=== PATIENT | male | born 1970 | race Caucasian/White ===

== ENCOUNTER → 2020-09-08 | Outpatient (CLI) | payer OTHER ==
[~2020-09-08] MED LIST: CYCLOBENZAPRINE10 MG PO; NAPROSYN500 MG PO
== END ==
LOC: KOH-I 10:22
DX: M25.512 Pain in left shoulder (principal)
CPT/HCPCS: 73030

== ENCOUNTER → 2020-10-26 | Outpatient (CLI) | payer BC, OTHER, SELFPAY | LOC: KOH-I 08:48 | DX: M79.672 Pain in left foot (principal) | CPT/HCPCS: 73630 ==

== ENCOUNTER → 2020-12-23 | Outpatient (CLI) | payer BC ==
[2020-12-23 12:29] LABS: BUN/CREATININE RATIO 21 (0-10)
== END ==
LOC: LAB 11:21
PROVIDERS: Emergency Medicine
DX: E11.9 Type 2 diabetes mellitus without complications (principal)
CPT/HCPCS: 36415; 80053; 80061; 82043; 82570; 83036; 84443

== ENCOUNTER 2021-02-18 10:45 | Emergency (ER) | payer BC, MEDICAID ==
[2021-02-18] MEDS ORDERED: NAPROSYN500 MG PO (15:48)
[2021-02-18] MEDS ORDERED: CYCLOBENZAPRINE10 MG PO (15:48)
== END 2021-02-18 16:21 | disposition home or self-care (01) ==
LOC: ER1 10:45
DX: M51.86 Other intervertebral disc disorders, lumbar region (principal); E11.9 Type 2 diabetes mellitus without complications; I10 Essential (primary) hypertension; Z88.5 Allergy status to narcotic agent
CPT/HCPCS: 72131; 96372; 99284; J1885

== ENCOUNTER → 2021-09-03 | Outpatient (CLI) | payer BC ==
[2021-09-04 08:15] LABS: A/G RATIO 1.8 (1.2-2.2); ALKALINE PHOSPHATASE, S 124 IU/L (44-121); ALT (SGPT) 54 IU/L (0-44); AST (SGOT) 34 IU/L (0-40); BILIRUBIN, TOTAL 0.5 mg/dL (0.0-1.2); BUN 15 mg/dL (6-24); BUN/CREATININE RATIO 20 (9-20); CALCIUM, SERUM 9.5 mg/dL (8.7-10.2); CARBON DIOXIDE, TOTAL 23 mmol/L (20-29); CHLORIDE, SERUM 104 mmol/L (96-106); CHOLESTEROL, TOTAL 177 mg/dL (100-199); CREATININE, SERUM 0.75 mg/dL (0.76-1.27); CREATININE, URINE 174.5 mg/dL (Not Estab.); EGFR IF AFRICN AM 121 (>59); EGFR IF NONAFRICN AM 105 (>59); ESTIM. AVG GLU (EAG) 263 mg/dL (.); GLOBULIN, TOTAL 2.3 g/dL (1.5-4.5); GLUCOSE, SERUM 201 mg/dL (65-99); HDL CHOLESTEROL 30 mg/dL (>39); HEMOGLOBIN A1C 10.8 % (4.8-5.6); LDL CHOLESTEROL CALC 120 mg/dL (0-99); POTASSIUM, SERUM 4.1 mmol/L (3.5-5.2); PROTEIN, TOTAL, SERUM 6.5 g/dL (6.0-8.5); SODIUM, SERUM 143 mmol/L (134-144); T. CHOL/HDL RATIO 5.9 ratio (0.0-5.0); TRIGLYCERIDES 148 mg/dL (0-149)
== END ==
LOC: LAB 10:07
PROVIDERS: Emergency Medicine
DX: E11.9 Type 2 diabetes mellitus without complications (principal)
CPT/HCPCS: 36415; 80053; 80061; 82043; 82570; 83036; 84443

== ENCOUNTER → 2021-10-11 | Outpatient (CLI) | payer BC ==
[2021-10-11 10:32] LABS: BUN/CREATININE RATIO 33 (0-10)
[2021-10-12 11:17] LABS: CREATININE, URINE 62.9 mg/dL (Not Estab.)
== END ==
LOC: ECHO 09:48
PROVIDERS: Internal Medicine Nephrology
DX: N18.9 Chronic kidney disease, unspecified (principal); I50.9 Heart failure, unspecified
CPT/HCPCS: ECHO; 36415; 80053; 81001; 82043; 82570; 84156; 93306

== ENCOUNTER → 2021-10-22 | Outpatient (CLI) | payer BC | LOC: KOH-I 11:22 | DX: M25.532 Pain in left wrist (principal); M19.032 Primary osteoarthritis, left wrist | CPT/HCPCS: 73100 ==

== ENCOUNTER → 2021-10-31 | Outpatient (CLI) | payer BC | LOC: EXRD 13:29 | DX: M79.89 Other specified soft tissue disorders (principal) | CPT/HCPCS: 93970 ==

== ENCOUNTER 2021-11-14 14:42 | Emergency (ER) | payer BC ==
[2021-11-14 15:19] LABS: HEMOGLOBIN 15.8 gm/dl (14.0-17.5); RED BLOOD COUNT 5.3 M/UL (4.20-5.50); WHITE BLOOD COUNT 8.2 K/UL (4.5-11.0)
[2021-11-14 15:39] LABS: BUN/CREATININE RATIO 19 (0-10)
[2021-11-14] MEDS ORDERED: HYDROCODON-ACE1 EAC4 PO (21:23)
== END 2021-11-14 21:45 | disposition home or self-care (01) ==
LOC: ER1 14:42
PROVIDERS: Preventive Medicine Occupational Medicine
DX: I83.12 Varicose veins of left lower extremity with inflammation (principal); I83.11 Varicose veins of right lower extremity with inflammation
CPT/HCPCS: 36600; 75635; 80053; 82550; 82803; 83605; 83690; 83874; 85025; 85652; 86140; 93005; 93925; 93970; 96374; 96375; 96376; 99284; J1170; J2405; Q9967

== ENCOUNTER → 2021-12-03 | Outpatient (CLI) | payer BC ==
[~2021-12-03] MED LIST changes: +HYDROCODON-ACE1 EAC4 PO
== END ==
LOC: WCC 08:52
DX: L97.822 Non-pressure chronic ulcer of other part of left lower leg with fat layer exposed (principal); I10 Essential (primary) hypertension; I73.9 Peripheral vascular disease, unspecified; E11.622 Type 2 diabetes mellitus with other skin ulcer; E11.22 Type 2 diabetes mellitus with diabetic chronic kidney disease; N18.9 Chronic kidney disease, unspecified; E11.40 Type 2 diabetes mellitus with diabetic neuropathy, unspecified; E11.65 Type 2 diabetes mellitus with hyperglycemia; E66.09 Other obesity due to excess calories; I87.2 Venous insufficiency (chronic) (peripheral); L97.222 Non-pressure chronic ulcer of left calf with fat layer exposed; M19.90 Unspecified osteoarthritis, unspecified site; Z88.8 Allergy status to other drugs, medicaments and biological substances; Z87.891 Personal history of nicotine dependence; Z79.82 Long term (current) use of aspirin

== ENCOUNTER → 2021-12-10 | Outpatient (CLI) | payer BC | LOC: WCC 07:39 | DX: I87.2 Venous insufficiency (chronic) (peripheral) (principal); E11.622 Type 2 diabetes mellitus with other skin ulcer; L97.821 Non-pressure chronic ulcer of other part of left lower leg limited to breakdown of skin; I10 Essential (primary) hypertension; E11.51 Type 2 diabetes mellitus with diabetic peripheral angiopathy without gangrene; I12.9 Hypertensive chronic kidney disease with stage 1 through stage 4 chronic kidney disease, or unspecified chronic kidney disease; E11.22 Type 2 diabetes mellitus with diabetic chronic kidney disease; N18.9 Chronic kidney disease, unspecified; E11.40 Type 2 diabetes mellitus with diabetic neuropathy, unspecified; E11.65 Type 2 diabetes mellitus with hyperglycemia; E66.09 Other obesity due to excess calories; Z88.8 Allergy status to other drugs, medicaments and biological substances; Z79.82 Long term (current) use of aspirin; Z79.4 Long term (current) use of insulin; Z68.43 Body mass index [BMI] 50.0-59.9, adult; Z79.899 Other long term (current) drug therapy ==

== ENCOUNTER → 2022-03-01 | Outpatient (CLI) | payer BC ==
[2022-03-01 08:28] LABS: BUN/CREATININE RATIO 18 (0-10)
== END ==
LOC: LAB 07:08
PROVIDERS: Emergency Medicine
DX: E11.9 Type 2 diabetes mellitus without complications (principal)
CPT/HCPCS: 36415; 80053; 83036